=== PATIENT | female | born 1975 | race American Indian/Alaskan Native ===

== ENCOUNTER 2016-11-08 06:21 | Day surgery (SDC) | payer MEDICAID, OTHER ==
[2016-11-08] MEDS ORDERED: Propofol 10 mg/ml Inj (20 ML) ONE (08:15)
[2016-11-08] MEDS ORDERED: Lactated Ringer's 1,000 ML IV ONE (08:15)
[2016-11-08] MEDS ORDERED: Lactated Ringer's 500 ML IV SCH (08:30)
[2016-11-08 08:51] VITALS: TEMP 96.8; O2SAT 100
[2016-11-08 11:13] VITALS: BP 110/73; PULSE 62; RESP 16
== END 2016-11-08 09:30 | disposition home or self-care (01) ==
LOC: C.ENDO 06:21
PROVIDERS: ATTEND Internal Medicine
DX: Z12.11 Encounter for screening for malignant neoplasm of colon (principal); K57.30 Diverticulosis of large intestine without perforation or abscess without bleeding; K64.8 Other hemorrhoids; Z80.0 Family history of malignant neoplasm of digestive organs
CPT/HCPCS: 45380; 84703; 88305; J2704; J3010; J7120